=== PATIENT | female | born 1990 | race Caucasian/White ===

== ENCOUNTER 2016-04-01 09:25 | Outpatient (CLI) | payer OTHER | END 2016-04-01 23:00 | LOC: LAB SRH 09:25 | DX: Z34.02 Encounter for supervision of normal first pregnancy, second trimester (principal) | CPT/HCPCS: 90039; 90074; 91162; 91163 ==

== ENCOUNTER 2016-04-08 07:59 | Outpatient (CLI) | payer OTHER | END 2016-04-08 23:00 | LOC: LAB SRH 07:59 | DX: O99.810 Abnormal glucose complicating pregnancy (principal) | CPT/HCPCS: 90074; 92652 ==

== ENCOUNTER 2016-05-12 17:53 | Outpatient (CLI) | payer OTHER ==
--- NOTE | 2016-05-12 19:49 | DIAGNOSTIC IMAGING REPORT ---
PROCEDURE: US OB LIMITED INDICATION: F/U PLACENTA PREVIA TECHNIQUE: Jacinto scale and color Doppler sonographic images obtained of the gravid uterus. COMPARISON: OB ultrasound 02/16/2016. FINDINGS: Single intrauterine with vertex presentation and anterior placenta with resolved previa. Heart rate 138 bpm. LAKIA measures 16.8 cm. Normal closed cervix measures 3.4 cm. Stomach, bladder and kidneys are grossly normal. IMPRESSION: 1. Single live intrauterine with vertex presentation 2. Anterior placenta with resolved placenta previa.
== END 2016-05-12 23:00 ==
LOC: US SRH 17:53
DX: Z34.03 Encounter for supervision of normal first pregnancy, third trimester (principal); Z3A.00 Weeks of gestation of pregnancy not specified

== ENCOUNTER 2016-05-29 03:42 | Outpatient (CLI) | payer OTHER ==
--- NOTE | 2016-05-29 07:54 | HISTORY AND PHYSICAL ---
ADMITTED: 05/29/2016 DATE OF SERVICE: 05/29/16 at approximately 0530 hours in the morning. CHIEF COMPLAINT: 1. A 33-5/7 weeks' gestation with confirmed spontaneous rupture of membranes, not in active labor, for transfer to [facility] per patient request. LABOR AND DELIVERY HEAD NURSE: Geno for room documentation. ACCEPTING PHYSICIAN: Dr. Baldomero Caruso for accepting the patient. HISTORY OF PRESENT ILLNESS: The patient has been followed by us. She is a 1. She has been followed by us and she has records for multiple visits. Laboratories are copied and sent. She is a 25-year-old with a due date of 07/12/2016, making her 33 and 5/7 weeks' gestation. She stated several hours ago she felt fluid leaking. She came into the hospital and has AmniSure that is positive and persistent leaking. Information was given to the patient with regard to being less than 34 weeks. The patient requested going to [facility]. The head nurse Geno noted above and Dr. Caruso have accepted transfer of the patient. Dr. Caruso's recommendation is to give the patient 12 mg of betamethasone IM and transfer the patient over in the next several hours. He stated he will perform the beta strep and prophylactic antibiotics as needed when the patient arrives there by 8 o'clock. MEDICAL/SURGICAL HISTORY: Medical: Noncontributory. Surgical: Negative. Menstrual history: 1, para 0. Infection history: Negative. Genetic history: Screening was negative. Risk factors: Negative. MEDICATIONS: 1. ALLERGIES: 1. Negative. SOCIAL HISTORY: Negative for tobacco, alcohol, drugs. FAMILY HISTORY: Noncontributory. REVIEW OF SYSTEMS: Alert and oriented x3. Genitourinary: Purpose of transfer. Gastrointestinal: Normal bowel movements. Cardiovascular: No shortness of breath or chest pain. Gestational confirmation was by last menstrual period being 05/08/2015, going to a due date of 07/12/2016. A confirmatory ultrasound done on 11/23/2015 has an SHERRY of 07/14/2016. OB problem list: Weight gain discussed with the patient. One hour glucose 156, 3-hour done 0/4 positive, MRSA negative, GBS not done. Resolved placenta previa on an earlier ultrasound has resolved. PHYSICAL EXAMINATION: VITAL SIGNS: Stable. HEENT: Grossly intact. HEART: Regular rate and rhythm. LUNGS: Clear. ABDOMEN: 36 cm. EXTREMITIES: No clubbing, cyanosis, erythema or edema. PELVIC: Exam performed based on the positive test by AmniSure. IMPRESSION: 1. A 33-5/7 weeks' with confirmed rupture of membranes by AmniSure. PLAN: Transfer by ambulance. After a long discussion with the patient, Dr. Caruso has instructed me to give the patient received 12 mg of betamethasone here and a Hep-Lock put in place. On arrival. In probably the next few hours, they will do a beta strep and initiate antibiotics as needed.
== END 2016-05-29 06:45 | disposition short-term general hospital (02) ==
LOC: OBC SRH 03:42 → OB SRH 03:44 → OBC SRH 06:45
PROC: 4A0HXCZ Measurement of Products of Conception, Cardiac Rate, External Approach (ICD-10-PCS; principal; 2016-05-29)
DX: O42.913 Preterm premature rupture of membranes, unspecified as to length of time between rupture and onset of labor, third trimester (principal); Z3A.33 33 weeks gestation of pregnancy
CPT/HCPCS: 29248; 40003